=== PATIENT | female | born 1980 | race Caucasian/White ===

== ENCOUNTER 2017-10-20 17:00 | Inpatient (IN) | payer OTHER ==
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
[2017-10-20] MEDS ORDERED: LIDOCAINE 1% 300 MG/30 ML SDV ONE (19:16)
[2017-10-20] MEDS ORDERED: OXYTOCIN 10 UNIT/ML VIAL ONE (19:17)
[2017-10-20] MEDS ORDERED: AMMONIA AROMATIC 1 EACH AMP IH ONE (19:17)
[2017-10-20] MEDS ORDERED: MISOPROSTOL 200 MCG TAB ONE (19:17)
[2017-10-20] MEDS ORDERED: OLIVE OIL 118 ML BTL ONE (19:17)
[2017-10-20] MEDS ORDERED: LR 1,000 ML IV PRN (19:42)
[2017-10-20] MEDS ORDERED: EPSOM SALT 454 GM TP PRN (19:42)
[2017-10-20] MEDS ORDERED: OLIVE OIL 118 ML BTL MISC PRN (19:42)
[2017-10-20] MEDS ORDERED: TERBUTALINE SULFATE 1 MG/ML VIAL IV PRN (19:42)
[2017-10-20] MEDS ORDERED: OXYTOCIN 20 UNIT in LR 1,000 ML IV PRN (19:42)
[2017-10-20] MEDS: MISOPROSTOL 100 MCG TAB PO SCH (19:54)
[2017-10-20 20:06] LABS: % IMMATURE GRANULYOCYTES 0.9 % (0.0-1.1); ADD DIFF? NO; ADD MORPH? NO; ADD SCAN? NO; ATYPICAL LYMPHOCYTE FLAG 0 (0-99); FRAGMENT RBC FLAG 0 (0-99); HEMATOCRIT 39.8 % (38.0-47.0); HEMOGLOBIN 14.1 g/dL (12.6-16.3); LEFT SHIFT FLG 0 (0-99); LIPEMIA HEMOLYSIS FLAG 90 (0-99); MEAN CELL HEMOGLOBIN 33.6 pg (27.9-34.1); MEAN CELL HEMOGLOBIN CONCENTR. 35.4 g/dL (32.4-36.7); MEAN CELL VOLUME 94.8 fL (81.5-99.8); MEAN PLATELET VOLUME 10.2 fL (8.7-11.7); PLATELET CLUMPS FLAG 0 (0-99); PLATELET COUNT 225 10^3/uL (150-400); RED CELL DISTRIBUTION WIDTH 11.7 % (11.5-15.2)
--- NOTE | 2017-10-20 23:31 | OBPROG ---
Labor Progress Note Assessment/Plan: Assessment: 36 y/o @ 38 weeks with SROM > 12 hours cytotec for cervical ripening and labor augmentation Plan: Contraction pattern is developing and status is reassuring. We will hold second dose of cytotec because she is having strong and regular contractions. We will observe closely and consider pitocin protocol if contractions decrease. Pt may desire an epidural for pain control. 10/20/17 23:28 Subjective/Intrapartum Course: 10/20/17 23:25 Pt is beginning to feel strong contractions. She is breathing with them and coping well. She is going to get into the tub. Objective: 10/20/17 19:45 Patient ABO/Rh O POSITIVE 10/20/17 19:45 - SVE Dilation (cm): 1 Effacement (%): 80 Station: -2 Membranes: SROM Amniotic Fluid Color: Clear - Contraction Pattern Assessment Current Contraction Pattern: Regular (Q 2 ) - FHR Assessment Perez FHR (bpm): 140 FHR Pattern Variability: Moderate FHR Category: 1 - AP Antepartum Course: 10/20/17 23:27 h/o depression and anxiety on Wellbutrin and Prozac, AMA, normal screening, Rubella low immune Oxytocin Orders Assessment - Pre-Induction/Augmentation Assessment Gestational Age: 38 week(s) and 1 day(s) ICD10 Worksheet Patient Problems: Problems Problem Status Onset SROM (spontaneous rupture of membranes) Acute - ICD10 Problem Qualifiers (1) SROM (spontaneous rupture of membranes)
[2017-10-20] MEDS ORDERED: LR 500 ML IV PRN (23:33)
[2017-10-20] MEDS ORDERED: OXYTOCIN 30 UNIT in NS 500 ML IV SCH (23:45)
[2017-10-20] MEDS ORDERED: fentaNYL 2MCG/ML/BUP 0.1% RTU 100 ML BAG EP ONE (23:57)
[2017-10-20] MEDS ORDERED: PHENYLEPHRINE HCL 100 MCG/ML SYR ONE (23:58)
[2017-10-20] MEDS ORDERED: BUPIVACAINE 0.25% 30 ML SDV ONE (23:58)
[2017-10-20] MEDS ORDERED: fentaNYL 100 MCG/2 ML INJ ONE (23:58)
[2017-10-21] MEDS ORDERED: fentaNYL 100 MCG/2 ML INJ ONE (00:13)
--- NOTE | 2017-10-21 00:55 | OBPROG ---
Labor Progress Note Assessment/Plan: Assessment: 36 y/o @ 38 weeks with SROM > 12 hours cytotec for cervical ripening and labor augmentation Plan: Pt is now comfortable with her epidural. She is making progress and sandeep regularly now. If contractions space out will start pitocin for augmentation. 10/20/17 23:28 10/21/17 00:52 Subjective/Intrapartum Course: 10/20/17 23:25 Pt is beginning to feel strong contractions. She is breathing with them and coping well. She is going to get into the tub. 10/21/17 00:50 Pt is now comfortable with her epidural. Objective: 10/20/17 19:45 Patient ABO/Rh O POSITIVE 10/20/17 19:45 - SVE Dilation (cm): 4 Effacement (%): 90 Station: 0 Membranes: SROM Amniotic Fluid Color: Clear - Contraction Pattern Assessment Current Contraction Pattern: Regular (Q 2) - FHR Assessment Perez FHR (bpm): 140 FHR Pattern Variability: Moderate FHR Category: 1 - AP Antepartum Course: 10/20/17 23:27 h/o depression and anxiety on Wellbutrin and Prozac, AMA, normal screening, Rubella low immune Oxytocin Orders Assessment - Pre-Induction/Augmentation Assessment Gestational Age: 38 week(s) and 1 day(s) ICD10 Worksheet Patient Problems: Problems Problem Status Onset SROM (spontaneous rupture of membranes) Acute - ICD10 Problem Qualifiers (1) SROM (spontaneous rupture of membranes)
--- NOTE | 2017-10-21 00:58 | PREANESOB ---
Obstetric Pre-Anesthesia Info - General Info Proposed Procedure: Labor and delivery. : 1 Para: 0 MELANIE: 11/02/17 Gestational Age: 38 week(s) and 1 day(s) - Info Status: Full Term Monitors: External FHR Baseline (bpm): 120 FHR Pattern: Reassuring - Labor Status Cervical Dilation per last OB SVE: 1 Station per last OB SVE: 0 Rupture of Membranes Date: 10/20/17 Rupture of Membranes Time: 03:30 Amniotic Fluid Color: Clear Indications for Labor Analgesia: Induction of Labor, Pain Control Labor Epidural: Proposed Anesthesia ROS: General anesthesia for knee surgery. Oral surgery. Allergies/Adverse Reactions: Allergy/AdvReac Type Severity Reaction Status Date / Time cephalexin [From Keflex] Allergy Hives Verified 10/20/17 17:46 shellfish derived Allergy Anaphylaxis Verified 10/20/17 17:50 iv contrast Allergy Anaphylaxis Uncoded 10/20/17 17:46 Home Medications: Medication Instructions Recorded Iron Polysacch/Iron Heme Polyp 1 tab PO DAILY 10/20/17 [Bifera] Vit27&Calcium/Iron/FA 1 tab PO DAILY 10/20/17 [] Prozac 20 MG (*) 30 mg PO DAILY 10/20/17 buPROPion XL [Wellbutrin 150mg XL] 1 tab PO DAILY 10/20/17 Visit Medications: Generic Name Dose Route Start Last Admin Trade Name Freq PRN Reason Stop Dose Admin Bupropion HCl 150 mg 10/21/17 09:00 Wellbutrin Xl PO 04/19/18 08:59 DAILY LENA Fluoxetine HCl 30 mg 10/21/17 09:00 Prozac PO 04/19/18 08:59 DAILY LENA Lactated Ringer's 1,000 mls @ 0 mls/hr 10/20/17 19:42 Lr IV 10/21/17 19:41 PRN PRN SEE PROTOCOL CONDITIONS Protocol Per Protocol Oxytocin 20 unit/ Lactated 1,002 mls @ 150 mls/hr 10/20/17 19:42 Ringer's IV PRN PRN Post- bleeding Lactated Ringer's 500 mls @ 500 mls/hr 10/20/17 23:33 Lr IV 10/21/17 23:33 PRN PRN Maternal Hypotension Oxytocin 30 unit/ Sodium 503 mls @ 0 mls/hr 10/20/17 23:45 Chloride IV 04/18/18 23:44 CONT LENA Protocol Per Protocol Ibuprofen 600 mg 10/20/17 19:42 Motrin PO 04/18/18 19:41 Q6HRS PRN post , inflammation Magnesium Sulfate 454 gm 10/20/17 19:42 Epsom Salt TP 04/18/18 19:41 Q1H PRN perineal discomfort Misoprostol 50 mcg 10/20/17 22:00 10/20/17 19:54 Cytotec PO 04/18/18 21:59 50 mcg Q4 LENA Administration [place] Oil 118 ml 10/20/17 19:42 Sweet Oil MISC 04/18/18 19:41 ONCE PRN perineal massage Terbutaline Sulfate 0.25 mg 10/20/17 19:42 Brethine IV 04/18/18 19:41 ONCE PRN Tachysystole Discontinued Medications Generic Name Dose Route Start Last Admin Trade Name Freq PRN Reason Stop Dose Admin Ammonia (Aromatic Spirit) Confirm 10/20/17 19:17 Ammonia Aromatic Administered 10/20/17 19:18 Dose 1 each IH .STK-MED ONE Bupivacaine HCl Confirm 10/20/17 23:58 Sensorcaine 0.25% Sdv Administered 10/20/17 23:59 Dose 30 ml .ROUTE .STK-MED ONE Fentanyl Confirm 10/20/17 23:58 Sublimaze Administered 10/20/17 23:59 Dose 100 mcg .ROUTE .STK-MED ONE Fentanyl Confirm 10/21/17 00:13 Sublimaze Administered 10/21/17 00:14 Dose 100 mcg .ROUTE .STK-MED ONE Fentanyl/Bupivacaine HCl Confirm 10/20/17 23:57 Fentanyl/Bupivacaine/Ns 2 Mcg/Ml 0.1% (Premix Administered 10/20/17 23:58 Dose 100 ml EP .STK-MED ONE Lidocaine HCl Confirm 10/20/17 19:16 Lidocaine Hcl 1% Administered 10/20/17 19:17 Dose 300 mg .ROUTE .STK-MED ONE Misoprostol Confirm 10/20/17 19:17 Cytotec Administered 10/20/17 19:18 Dose 1,000 mcg .ROUTE .STK-MED ONE [place] Oil Confirm 10/20/17 19:17 Sweet Oil Administered 10/20/17 19:18 Dose 118 ml .ROUTE .STK-MED ONE Oxytocin Confirm 10/20/17 19:17 Pitocin Administered 10/20/17 19:18 Dose 40 unit .ROUTE .STK-MED ONE Phenylephrine HCl Confirm 10/20/17 23:58 Neosynephrine Administered 10/20/17 23:59 Dose 1,000 mcg .ROUTE .STK-MED ONE - Anesthesia History Response to Local Anesthetics: Normal Anesthesia & Operative History: No Prior Problems Family Anesthesia History: Negative - Social History Substance Use/Abuse: Denies - Vital Signs Blood Pressure: 153/90 Heart Rate: 86 Height/Weight (Nursing): Height 152.4 cm Weight 71.214 kg - Focused Exam Neck exam: FROM Mallampati Score: Class 2 Mouth exam: normal dental/mouth exam Pulmonary: no respiratory distress Cardiovascular: regular rate and rhythym Labs: 10/20/17 19:45 Patient ABO/Rh O POSITIVE 10/20/17 19:45 - Plan Consent Signed and on Chart: Yes Patient/Guardian Understands and Agrees to Plan: Yes Urgent/Emergent Case: Magdalena gay completed preop but documented later for safe timely pt care
--- NOTE | 2017-10-21 01:01 | POSTANESTH ---
Post Anesthetic Evaluation Cardiovascular Status: Normal, Stable, Similar to Pre-Op Cond Respiratory Status: Normal, Stable, Similar to Pre-op Cond. Level of Consciousness/Mental Status: Can Participate in Eval, Alert and Oriented Pain Control: Adequate, Prn Tx Ordered Nausea/Vomiting Control: Adequate, Prn Tx Ordered Complications Possibly Related to Anesthesia: None Noted
[2017-10-21] MEDS ORDERED: ONDANSETRON 4 MG/2 ML VIAL IVP PRN (01:02)
[2017-10-21] MEDS ORDERED: PHENYLEPHRINE HCL 100 MCG/ML SYR IVP PRN (01:02)
[2017-10-21] MEDS ORDERED: fentaNYL 2MCG/ML/BUP 0.1% RTU 100 ML EP SCH (01:30)
[2017-10-21] MEDS ORDERED: LR 500 ML IV SCH (01:30)
--- NOTE | 2017-10-21 05:04 | OBPROG ---
Labor Progress Note Assessment/Plan: Assessment: 36 y/o @ 38 weeks with SROM > 12 hours cytotec for cervical ripening and labor augmentation Plan: Pt has made good cervical change. She is on 6 mU of pitocin and status is reassuring. Will re assess in 1 hour. 10/20/17 23:28 10/21/17 00:52 10/21/17 05:01 Subjective/Intrapartum Course: 10/20/17 23:25 Pt is beginning to feel strong contractions. She is breathing with them and coping well. She is going to get into the tub. 10/21/17 00:50 Pt is now comfortable with her epidural. 10/21/17 05:00 Pt is now feeling pelvic pressure and the urge to have a BM. Objective: 10/20/17 19:45 Patient ABO/Rh O POSITIVE 10/20/17 19:45 Temp Pulse Resp BP Pulse Ox 86 153/90 H 10/21/17 00:59 10/21/17 00:59 - SVE Dilation (cm): 8 Effacement (%): 90 Station: +1 Membranes: SROM Amniotic Fluid Color: Clear - Contraction Pattern Assessment Current Contraction Pattern: Regular (Q 2-3) - AP Antepartum Course: 10/20/17 23:27 h/o depression and anxiety on Wellbutrin and Prozac, AMA, normal screening, Rubella low immune Oxytocin Orders Assessment - Pre-Induction/Augmentation Assessment Gestational Age: 38 week(s) and 1 day(s) ICD10 Worksheet Patient Problems: Problems Problem Status Onset SROM (spontaneous rupture of membranes) Acute - ICD10 Problem Qualifiers (1) SROM (spontaneous rupture of membranes)
[2017-10-21] MEDS ORDERED: HYDROCODONE/APAP 5/325 TAB PO PRN (07:42)
[2017-10-21] MEDS ORDERED: ACETAMINOPHEN 325 MG TAB PO PRN (07:42)
[2017-10-21] MEDS ORDERED: HYDROCORTISONE 0.5% CREAM TP PRN (07:42)
[2017-10-21] MEDS ORDERED: SIMETHICONE 80 MG TAB CHEW PO PRN (07:42)
--- NOTE | 2017-10-21 07:46 | OBDEL ---
Info Type: Vaginal Presentation at Delivery: Vertex L&D Analgesia/Anesthesia Type: Epidural, Local (1 % lidocaine) GBS+: No Intrapartum Medications: Generic Name Dose Route Start Last Admin Trade Name Brendon PRN Reason Stop Dose Admin Oxytocin 30 unit/ Sodium 503 mls @ 0 mls/hr 10/20/17 23:45 10/21/17 02:09 Chloride IV 04/18/18 23:44 503 mls CONT LENA Administration Protocol Per Protocol Misoprostol 50 mcg 10/20/17 22:00 10/20/17 19:54 Cytotec PO 04/18/18 21:59 50 mcg Q4 LENA Administration - Hospital Course Intrapartum: 10/20/17 23:25 Pt is beginning to feel strong contractions. She is breathing with them and coping well. She is going to get into the tub. 10/21/17 00:50 Pt is now comfortable with her epidural. 10/21/17 05:00 Pt is now feeling pelvic pressure and the urge to have a BM. Indications for Delivery: SROM Vaginal Delivery - Delivery Provider Delivery Physician/CNM: Maia Hitchcock - Labor and Delivery Onset of Contractions Date: 10/20/17 Onset of Contractions Time: 23:45 Onset of Contractions Type: Induced Rupture of Membranes Date: 10/20/17 Rupture of Membranes Time: 03:30 Rupture of Membranes Type: Spontaneous Amniotic Fluid Color: Clear Dilation Complete Date: 10/21/17 Dilation Complete Time: 06:09 Placenta Delivery Date: 10/21/17 Placenta Delivery Time: 07:21 Total Hours of Labor: 7 Laceration: 2nd Degree Repair: 2-0, Vicryl Vaginal Sponge Count Correct: Yes Vaginal Needle Count Correct: Yes Vaginal Sweep Performed: No EBL: 150 - Medications Labor Augmentation/Induction Methods Used: Pitocin, Misoprostol (50 mcg x 1) Labor Augmentation/Induction Indication: Other (Specify) (SROM > 12 hours) [place] Data Perez Delivery Date: 10/21/17 Delivery Time: 07:14 MELANIE: 11/02/17 Gestational Age: 38 week(s) and 2 day(s) Sex of : Male Score (1 Min): 8 Score (5 Min): 9 ICD10 Worksheet Patient Problems: Problems Problem Status Onset SROM (spontaneous rupture of membranes) Acute (spontaneous vaginal delivery) Acute - ICD10 Problem Qualifiers (1) SROM (spontaneous rupture of membranes) (2) (spontaneous vaginal delivery)
[2017-10-21] MEDS: MISOPROSTOL 100 MCG TAB PO SCH (07:53)
[2017-10-21] MEDS: IBUPROFEN 600 MG TAB PO PRN ×3 (08:16→20:53)
[2017-10-21] MEDS: buPROPion XL 150 MG TAB PO SCH (09:39)
[2017-10-21] MEDS: FLUoxetine 10 MG CAP PO SCH (09:39)
[2017-10-22] MEDS: IBUPROFEN 600 MG TAB PO PRN ×4 (02:57→21:15)
[2017-10-22] MEDS: FLUoxetine 10 MG CAP PO SCH (09:29)
[2017-10-22] MEDS: buPROPion XL 150 MG TAB PO SCH (09:30)
[2017-10-22] MEDS ORDERED: MEASLES,MUMPS&RUBELLA VACC/PF 0.5 ML VIAL SC ONE (11:56)
--- NOTE | 2017-10-22 13:08 | OBPP ---
Progress Note Assessment/Plan: Assessment: PPD 1 s/p depr on Wellbutrin, prosac Plan: routine care 10/22/17 13:03 Subjective/ Course: 10/22/17 13:05 Doing well. very happy with , bottom not too sore, bld has lessened. urinating fine - bit sore. using ibu. BF going well - good success with Lashaun. Objective: 10/20/17 19:45 Patient ABO/Rh O POSITIVE 10/20/17 19:45 Temp Pulse Resp BP Pulse Ox 36.6 C 79 16 110/76 95 10/22/17 07:30 10/22/17 07:30 10/22/17 07:30 10/22/17 07:30 10/22/17 07:30 Uterine Position/Fundal Height: Umbilicus -1 Uterine Tone: Firm Physical Exam - Physical Exam Abdomen: non-tender, soft, other (FF at umb -1) Extremities: non-tender, pedal edema (minimal) Skin: normal color, warm/dry Neuro/Psych: alert, normal mood/affect
[2017-10-22] MEDS: DOCUSATE SODIUM 100 MG CAP PO PRN ×2 (16:20→21:15)
[2017-10-23 08:55] VITALS: BP 117/78; PULSE 80; RESP 18; TEMP 97.4; O2SAT 95
[2017-10-23] MEDS: FLUoxetine 10 MG CAP PO SCH (09:14)
[2017-10-23] MEDS: DOCUSATE SODIUM 100 MG CAP PO PRN (09:14)
[2017-10-23] MEDS: buPROPion XL 150 MG TAB PO SCH (09:15)
[2017-10-23] MEDS: IBUPROFEN 600 MG TAB PO PRN (09:15)
--- NOTE | 2017-10-23 14:22 | OBGCSDC ---
General Delivery Information - General Info : 1 Para: 1 Abortions: 0 Type: Vaginal L&D Analgesia/Anesthesia Type: Epidural, Local Admission Date: 10/20/17 Labs: Patient ABO/Rh O POSITIVE 10/20/17 19:45 Hct 39.8 % (38.0-47.0) 10/20/17 19:45 - Hospital Course Antepartum: 10/20/17 23:27 h/o depression and anxiety on Wellbutrin and Prozac, AMA, normal screening, Rubella low immune Intrapartum: 10/20/17 23:25 Pt is beginning to feel strong contractions. She is breathing with them and coping well. She is going to get into the tub. 10/21/17 00:50 Pt is now comfortable with her epidural. 10/21/17 05:00 Pt is now feeling pelvic pressure and the urge to have a BM. : 10/22/17 13:05 Doing well. very happy with , bottom not too sore, bld has lessened. urinating fine - bit sore. using ibu. BF going well - good success with Lashaun. 10/23/17 14:18 S) Pt doing well, reports min pain and bleeding. she is ambulating and voiding without difficulty. She is . She desires discharge home today. O) VSS, afebrile constitutional: WNWF, A&Ox3 HEENT: normocephalic, atraumatic, supple Heart: RRR, No murmur Chest: CTA-B Abdomen: Soft, nontender Uterus: Firm at U-2 Lochia: Minimal rubra Perineum: Intact, healing well Extremities: 1+ pedal edema, and negative Mana's sign Neuro: Grossly normal A) 36 year-old S/P PPD#2 P) Discharge home today Continue Pelvic rest x6wks Discussed danger signs (infection, preeclampsia, depression, heavy bleeding, etc ) RTO in 4/6 weeks Vaginal - Delivery Provider Delivery Physician/CNM: Maia Hitchcock - Diagnosis Labor: Induced Rupture of Membranes Type: Spontaneous Amniotic Fluid Color: Clear Laceration: 2nd Degree Repair: 2-0, Vicryl - Delivery EBL: 150 [place] Data MELANIE: 11/02/17 Gestational Age: 38 week(s) and 4 day(s) Perez Delivery Date: 10/21/17 Delivery Time: 07:14 Sex of : Male Score (1 Min): 8 Score (5 Min): 9 Discharge Information - Discharge Information Condition: Good Instruction/Follow Up: Four Weeks, Six Weeks
== END 2017-10-23 16:00 | disposition home or self-care (01) | DRG 775 ==
LOC: FLD 17:00 → FOB 10-21 09:50
PROVIDERS: ADMIT Obstetrics & Gynecology; ATTEND Obstetrics & Gynecology
PROC: 10E0XZZ Delivery of Products of Conception, External Approach (ICD-10-PCS; principal; 2017-10-21)
PROC: 0KQM0ZZ Repair Perineum Muscle, Open Approach (ICD-10-PCS; principal; 2017-10-21)
DX: O99.344 Other mental disorders complicating childbirth (principal); F32.9 Major depressive disorder, single episode, unspecified; O70.1 Second degree perineal laceration during delivery; Z37.0 Single live birth; Z3A.38 38 weeks gestation of pregnancy
CPT/HCPCS: J2370; J3010

== ENCOUNTER → 2017-10-28 | Outpatient (CLI) | payer OTHER | LOC: FLACT 13:24 | PROVIDERS: ATTEND Obstetrics & Gynecology | DX: O92.79 Other disorders of lactation (principal) | CPT/HCPCS: G0463 ==